=== PATIENT | female | born 1965 | race Hispanic/Latino ===

== ENCOUNTER 2022-06-07 17:59 | Emergency (ER) | payer SELFPAY ==
[~2022-06-07] VITALS: Ht 152.4 cm; Wt 83.9 kg
[2022-06-07 18:34] LABS: BASOPHILS % 0.5 % (0.0-1.0); EOSINOPHILS # (AUTO) 0.1 (0.0-0.4); EOSINOPHILS % 1.9 % (0.0-6.0); HEMATOCRIT 38.9 % (34.2-44.1); HEMOGLOBIN 12.8 g/dL (12.0-16.0); LYMPHOCYTES # (AUTO) 1.5 (1.0-3.2); LYMPHOCYTES % 23.2 % (18.0-39.1); MEAN CORPUSCULAR HEMOGLOBIN 31.2 pg (28-32); MEAN CORPUSCULAR HGB CONC 32.9 g/dL (31-35); MEAN CORPUSCULAR VOLUME 94.9 fL (81-99); MONOCYTES # (AUTO) 0.7 (0.2-0.8); MONOCYTES % 10.7 % (4.4-11.3); NEUTROPHILS # (AUTO) 4.1 (2.1-6.9); NEUTROPHILS % 63.5 % (38.7-80.0); PLATELET COUNT 172 x10e3/uL (140-360); RED CELL DISTRIBUTION WIDTH 12.2 % (11.7-14.4)
[2022-06-07 18:49] LABS: ANION GAP 13.4 mmol/L (8-16); CREATININE, SERUM 0.63 mg/dL (0.57-1.11); POTASSIUM 4.4 mmol/L (3.5-5.1)
[2022-06-07 19:00] LABS: CLARITY,URINE CLOUDY (CLEAR); COLOR,URINE ORANGE (YELLOW); KETONES,URINE NEGATIVE (NEGATIVE); LEUKOCYTE ESTERASE ,URINE SMALL (NEGATIVE); NITRITE,URINE NEGATIVE (NEGATIVE); PROTEIN,URINE DIPSTICK TRACE (NEGATIVE); URINE UROBILINOGEN 0.2 mg/dL (0.2 - 1)
[2022-06-07 19:02] LABS: BACTERIA,URINE FEW /HPF; EPITHELIAL CELLS,URINE FEW /LPF; RBC,URINE 21-50 /HPF (0-5); TRANSITIONAL EPI CELLS,URINE FEW; WBC,URINE (MAN) >50 /HPF (0-5)
[2022-06-07] MEDS ORDERED: CEFDINIR300 MG PO (19:34)
[2022-06-07] MEDS ORDERED: PYRIDIUM200 MG PO (19:34)
[2022-06-07 19:44] VITALS: BP 108/74
== END 2022-06-07 19:47 | disposition home or self-care (01) ==
LOC: ER 18:03
DX: R30.0 Dysuria (principal); N30.91 Cystitis, unspecified with hematuria; E11.65 Type 2 diabetes mellitus with hyperglycemia; Z85.3 Personal history of malignant neoplasm of breast
CPT/HCPCS: 36415; 74176; 80048; 81001; 85025; 99284

== ENCOUNTER 2023-05-12 20:28 | Emergency (ER) | payer OTHER ==
[~2023-05-12] VITALS: Ht 152.4 cm; Wt 83.9 kg
[~2023-05-12 20:28] MED LIST: CEFDINIR300 MG PO; PYRIDIUM200 MG PO
[2023-05-12 20:40] VITALS: O2SAT 100
[2023-05-12] MEDS ORDERED: MELOXICAM7.5 MG PO (21:33)
== END 2023-05-12 21:36 | disposition home or self-care (01) ==
LOC: ER 20:38
DX: M25.561 Pain in right knee (principal); M13.861 Other specified arthritis, right knee; E11.9 Type 2 diabetes mellitus without complications; Z85.3 Personal history of malignant neoplasm of breast
CPT/HCPCS: 99283